=== PATIENT | male | born 1960 | race Caucasian/White ===

== ENCOUNTER 2017-11-04 17:31 | Emergency (ER) | payer BC ==
[~2017-11-04] VITALS: Ht 180.3 cm; Wt 94.2 kg
[2017-11-04] MEDS ORDERED: L.E.T SOLUTION TP ONE ×2 (18:30→18:38)
[2017-11-04] MEDS ORDERED: LIDOCAINE-MPF 1%, 5ML INFIL ONE (18:30)
[2017-11-04] MEDS ORDERED: DIPH,PERTUSS(ACELL),TET VAC/PF 0.5 ML IM-VACC ONE ×2 (18:30→18:38)
[2017-11-04] MEDS ORDERED: LIDOCAINE-MPF 1%, 5ML ONE (18:38)
[2017-11-04] MEDS ORDERED: BACITRACIN ZINC OINT 500U/GM, 0.9 GM ONE (20:06)
[2017-11-04 20:16] VITALS: BP 154/96
== END 2017-11-04 20:29 | disposition home or self-care (01) ==
LOC: ED 19:00
DX: S91.112A Laceration without foreign body of left great toe without damage to nail, initial encounter (principal); W31.89XA Contact with other specified machinery, initial encounter; Y93.89 Activity, other specified; Y92.59 Other trade areas as the place of occurrence of the external cause; Y99.8 Other external cause status; I10 Essential (primary) hypertension
CPT/HCPCS: 13132; 90471; 90715; 99285